=== PATIENT | female | born 2000 | race Hispanic/Latino ===

== ENCOUNTER 2021-09-27 05:02 | Emergency (ER) | payer MEDICAID, OTHER ==
[2021-09-27] MEDS ORDERED: Acetaminophen 325 MG Suppository ONE (06:08)
[2021-09-27] MEDS ORDERED: Ibuprofen 600 MG TAB ONE (06:08)
[2021-09-27] MEDS ORDERED: Acetaminophen 325 MG TAB ONE (06:09)
[2021-09-27 06:14] LABS: Pregnancy Test - Urine (BHCG) Negative (Negative); Pregu Control Background? CLEAR/WHITE (CLR/WHITE); Pregu Control Bar Appear? YES (CONTROL BAR); Specific Gravity 1.025 (1.002-1.036)
== END 2021-09-27 07:54 | disposition home or self-care (01) ==
LOC: MADERS 05:02
DX: S06.0X1A Concussion with loss of consciousness of 30 minutes or less, initial encounter (principal); S50.11XA Contusion of right forearm, initial encounter; Y04.2XXA Assault by strike against or bumped into by another person, initial encounter
CPT/HCPCS: 70450; 81025